=== PATIENT | female | born 1975 | race Caucasian/White ===

== ENCOUNTER 2017-01-27 19:01 | Emergency (ER) | payer SELFPAY ==
[~2017-01-27] VITALS: Ht 193 cm; Wt 108.0 kg
[2017-01-27 19:03] VITALS: BP 150/94; PULSE 84; RESP 14; TEMP 98.8; O2SAT 99
[2017-01-27] MEDS ORDERED: METO50TA PO (19:14)
[2017-01-27] MEDS ORDERED: LEVO.05 PO (19:14)
[2017-01-27] MEDS ORDERED: ATOR10TA15 PO (19:14)
[2017-01-27] MEDS ORDERED: HYDR-3583 PO (19:14)
[2017-01-27] MEDS ORDERED: TRAM50TA PO (19:14)
[2017-01-27] MEDS ORDERED: AMBI5TAB PO (19:14)
--- NOTE | 2017-01-27 19:19 | PD ---
HPI . right ear infection x 1 month Chief Complaint: ENT Complaint Time Seen by Provider: 19:16 Travel History International Travel<30 days: No Contact w/Intl Traveler<30days: No Traveled to known affect area: No History of Present Illness HPI 41-year-old female here with complaints of a right sided ear infection for the past month. Patient says she recently moved from [place] and had been previously treated there. She said the infection never went away and she has a lot of tenderness in her right outer ear and ear canal. She denies any fever or chills. She denies any ear aching. The pain is localized to the outer ear. PFSH Past Medical History ?: Not Social History Tobacco Use: No Allergies-Medications (Allergen,Severity, Reaction): Coded Allergies: No Known Allergies (Unverified , 01/27/17) Reported Meds & Prescriptions Reported Meds & Active Scripts Active Bactrim DS (Sulfamethoxazole-Trimethoprim) 800-160 Mg Tab 1 Tab PO BID Ciprodex Otic Drops (Ciprofloxacin-Dexamethasone Otic Drops) 0.3-0.1% Susp 4 Drop RIGHT EAR BID 5 Days Reported Tramadol (Tramadol HCl) 50 Mg Tab 50 Mg PO Q4H PRN Hydrocodone-Acetaminophen 10-325 mg Tab 1 Tab PO Q4H PRN Synthroid (Levothyroxine Sodium) 50 Mcg Tab 50 Mcg PO DAILY Atorvastatin (Atorvastatin Calcium) 10 Mg Tab 10 Mg PO HS Ambien (Zolpidem Tartrate) 5 Mg Tab 5 Mg PO HS PRN Metoprolol Tartrate 50 Mg Tab 50 Mg PO BID Review of Systems General / Constitutional: No: Fever Eyes: No: Visual changes HENT: Positive: Earache, No: Headaches Cardiovascular: No: Chest Pain or Discomfort Respiratory: No: Shortness of Breath Gastrointestinal: No: Abdominal Pain Genitourinary: No: Dysuria Musculoskeletal: No: Pain Skin: No Rash Neurologic: No: Weakness Psychiatric: No: Depression Endocrine: No: Polydipsia Hematologic/Lymphatic: No: Easy Bruising Physical Exam Narrative GENERAL: AAO x 3, no acute distress, Well-nourished, well-developed patient. SKIN: Warm and dry. No visible rashes or bruising. HEAD: Normocephalic and atraumatic. EYES: No scleral icterus. No injection or drainage. ENT: No nasal drainage noted. Mucous membranes pink. Airway patent. Right outer ear erythema, tenderness of tragus and ear canal erythematous and edematous.TM normal b/l. NO mastoid process tenderness. NECK: Supple, trachea midline. No JVD. no lymphadenopathy CARDIOVASCULAR: Regular rate and rhythm without murmurs, gallops, or rubs. RESPIRATORY: Breath sounds equal bilaterally. No accessory muscle use. No rhonchi or rales. GASTROINTESTINAL: visual inspection normal EXTREMITIES: No cyanosis or edema. BACK: Nontender without obvious deformity. No CVA tenderness. PSYCH: AAO x 3, normal affect. Data Data Last Documented VS Vital Signs Date Time Temp Pulse Resp B/P Pulse Ox O2 Delivery O2 Flow Rate FiO2 01/27/17 19:14 16 01/27/17 19:03 98.8 84 150/94 99 Room Air MDM Medical Decision Making Medical Screen Exam Complete: Yes Emergency Medical Condition: Yes Medical Record Reviewed: Yes Differential Diagnosis otitis externa, cellulitis of ear, less likely OM Narrative Course This is a 41-year-old female here with what appears to be otitis externa and outer ear cellulitis. I will go ahead and treat her with Ciprodex for her outer ear infection and Bactrim for her outer ear cellulitis to cover MRSA. I recommend for symptoms do not improve in the next 3-5 days, that she follow- up with her primary care provider or here in the emergency department. I recommend she use Tylenol or Motrin as needed for pain. Patient verbalized understanding of instructions, questions were answered, and thanked me for their care. I advised them if their condition worsens, please return to the nearest emergency room for further care. Diagnosis Primary Impression: OE (otitis externa) Qualified Code: H60.311 - Chronic diffuse otitis externa of right ear Additional Impression: Cellulitis Qualified Code: L03.211 - Cellulitis of face Patient Instructions: General Instructions Additional Instructions: Do not put any objects such as Q-tips into the ears. If this area worsens, go to your primary care or to the nearest emergency department. Please return to emergency department if your symptoms return or worsen. Follow up with your primary care provider. Take medications as prescribed. Med/Other Pt SpecificInfo: Prescription(s) given Scripts Sulfamethoxazole-Trimethoprim (Bactrim DS)800-160 Mg Tab1 Tab PO BID #20 TAB Prov:Joshua Bergman MD 01/27/17 Ciprofloxacin-Dexamethasone Otic Drops (Ciprodex Otic Drops)0.3-0.1% Susp4 Drop RIGHT EAR BID 5 Days Prov:Joshua Bergman MD 01/27/17 Disposition: 01 DISCHARGE HOME Condition: Stable Dianna Sun January 27, 2017 19:19
[2017-01-27] MEDS ORDERED: BACT800T5 PO (19:20)
[2017-01-27] MEDS ORDERED: CIPR0.3S RIGHT EAR (19:20)
== END 2017-01-27 19:36 | disposition home or self-care (01) ==
LOC: NEPK 19:01
DX: H60.311 Diffuse otitis externa, right ear (principal); L03.211 Cellulitis of face
CPT/HCPCS: 99284